=== PATIENT | female | born 1990 | race African-American/Black ===

== ENCOUNTER → 2020-12-09 15:07 | Outpatient (BNVA) | payer SELFPAY | DX: Z02.1 Encounter for pre-employment examination (principal) ==

== ENCOUNTER 2021-08-21 03:18 | Emergency (ER) | payer OTHER, SELFPAY ==
--- NOTE | ~2021-08-21 | US_ITS ---
EXAMINATION: US PELVIS CLINICAL INFORMATION: Left lower quadrant pelvic pain COMPARISON: 09/21/2015 TECHNIQUE: Ultrasound of the pelvis is performed using both transabdominal and transvaginal transducers along with Doppler. Transvaginal imaging is performed due to inadequate visualization transabdominally. FINDINGS: Uterus: The uterus is anteverted and measures 9.4 x 4.2 x 5.3 cm. The double wall endometrial thickness is 0.5 mm. The uterus is smooth in contour and has normal myometrial echogenicity. No visible fibroid. Adnexa: Both ovaries are visualized. There is normal color flow to the adnexa. There is no ovarian torsion. There is no pelvic ascites or fluid collection. Right ovary measures 3.7 x 1.4 x 1.6 cm. Left ovary measures 3.1 x 2.2 x 2.1 cm. There is a 1.8 cm follicle within the left ovary. US/US pelvic ovarian doppler IMPRESSION: Normal pelvic ultrasound.
--- NOTE | ~2021-08-21 | US_ITS ---
EXAMINATION: US PELVIS CLINICAL INFORMATION: Left lower quadrant pelvic pain COMPARISON: 09/21/2015 TECHNIQUE: Ultrasound of the pelvis is performed using both transabdominal and transvaginal transducers along with Doppler. Transvaginal imaging is performed due to inadequate visualization transabdominally. FINDINGS: Uterus: The uterus is anteverted and measures 9.4 x 4.2 x 5.3 cm. The double wall endometrial thickness is 0.5 mm. The uterus is smooth in contour and has normal myometrial echogenicity. No visible fibroid. Adnexa: Both ovaries are visualized. There is normal color flow to the adnexa. There is no ovarian torsion. There is no pelvic ascites or fluid collection. Right ovary measures 3.7 x 1.4 x 1.6 cm. Left ovary measures 3.1 x 2.2 x 2.1 cm. There is a 1.8 cm follicle within the left ovary. US/US pelvic and transvaginal IMPRESSION: Normal pelvic ultrasound.
[2021-08-21 03:22] VITALS: BP 138/96; PULSE 74; RESP 16; TEMP 36.4; O2SAT 100; BMI 20.5
[2021-08-21 04:03] LABS: MANUAL DIFF FLAG NO
[2021-08-21 04:04] LABS: Basophils Percent Auto 0.7 % (0-2); Eosinophils Absolute Auto 0.2 X10*3/uL (0.0-0.4); Eosinophils Percent Auto 4.8 % (0-4); Hematocrit 37.1 % (37.0-47.0); Hemoglobin 11.4 g/dl (12.0-16.0); Imm Gran Abs Auto 0.01 X10*3/uL (0.00-0.03); Imm Gran Pct Auto 0.2 % (0.0-0.4); Lymphocytes Absolute Auto 1.2 X10*3/uL (1.2-4.9); Lymphocytes Percent Auto 26.7 % (20-40); Mean Corpuscular HGB Conc 30.7 g/dl (31.0-35.0); Mean Corpuscular Hemoglobin 25.7 pg (27.0-33.0); Mean Corpuscular Volume 83.7 fL (80.0-98.0); Mean Platelet Volume 11.3 fL (9.4-12.3); Monocytes Absolute Auto 0.4 X10*3/uL (0.1-1.2); Monocytes Percent Auto 9.4 % (2-11); Neutrophils Absolute Auto 2.5 x10*3/uL (2.0-8.3); Neutrophils Percent Auto 58.2 % (45-73); Platelet Count 205 X10*3/uL (160-400); Red Blood Count 4.43 X10*6/uL (4.20-5.50); Red Cell Distribution Width 13.2 % (11.0-16.0); White Blood Count 4.3 X10*3/uL (4.8-10.8)
[2021-08-21 04:20] LABS: Appearance Urine CLEAR; Color Urine YELLOW; Glucose Urine UA NEG (NEG); Leukocyte Esterase Urine NEG (NEG); Nitrite Urine NEG (NEG); Specific Gravity - Urine >= 1.030 (1.005-1.025); UACC Culture Trigger NO; Urine Blood TRACE (NEG); Urine Ketones NEG (NEG); Urine Protein NEG (NEG-TRACE)
[2021-08-21 04:22] LABS: UPreg QC Valid YES; Urine Pregnancy NEGATIVE (NEGATIVE)
[2021-08-21 04:23] LABS: Alanine Aminotransferase 12 U/L (0-31); Albumin Level 4.1 g/dL (3.5-5.0); Alkaline Phosphatase 49 U/L (39-117); Anion Gap 11 (12-20); Aspartate Amino Transferase 17 U/L (5-31); Bilirubin Total < 0.2 mg/dL (0.0-1.0); Blood Urea Nitrogen 13 mg/dL (9-16); Carbon Dioxide 24 mmol/L (22-29); Chloride 105 mmol/L (96-108); Estimated Glomerular Filt Rate > 60; Glucose Random 89 mg/dL (60-115); Potassium 3.7 mmol/L (3.3-5.1); Sodium 136 mmol/L (135-145); Total Protein 6.6 g/dL (6.5-8.0)
[2021-08-21 04:33] LABS: Bacteria Urine TRACE /LPF; Mucus Urine 3+ /LPF; Squamous Epithelial Cell Urine 2+ /LPF; WBC Urine 0-2 /HPF (0-4)
--- NOTE | 2021-08-21 04:39 | ED_ITS ---
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 She reports a history of ovarian cyst endorses that she did have an ultrasound 2 weeks ago that was ?negative?. However, patient states that her pain was so severe this morning that instead of going home after work she drove straight here. Related Data Allergies Allergy/AdvReac Type Severity Reaction Status Date / Time ondansetron Allergy Unknown SWELLING Verified 08/21/21 03:26 [From ZOFRAN ( HYDROCHLORIDE)] Review of Systems Review of Systems Pertinent positives and negatives as stated in HPI 10 point review of systems is otherwise negative. PMFSH Past Medical History Source: nursing notes reviewed Medical History Mayi's disease Ovarian cyst Social History Social History Advance Directives: No Advance Directives Information Provided: Yes Patient : No Physical Exam ED Vital Signs: Vital Signs - 24 hr 08/21/21 03:22 08/21/21 05:51 Temperature 97.6 F 97.9 F Pulse Rate 74 66 Respiratory Rate 16 18 Blood Pressure 138/96 H 100/60 Pulse Oximetry 100 98 BMI result Body Mass Index 20.5 VITAL SIGNS: Reviewed. GENERAL: Well developed, well nourished, in no acute distress. HEAD: Normocephalic/atraumatic EYES: PERRLA, EOMI EARS: Ext canals without abnormality OROPHARYNX: no oral lesions noted, posterior pharynx clear LUNGS: Normal breath sounds. SpO2<100> CARDIOVASCULAR: Regular rate and rhythm without noted murmurs ABDOMEN: Soft, pain on palpation to left lower abdomen without rebound, non- distended with bowel sounds. MUSCULOSKELETAL: No tenderness, deformities, or effusions noted on gross inspection. EXTREMITIES: No cyanosis, clubbing or edema. SKIN: Inspection of the skin reveals no rashes NEUROLOGIC: Alert and oriented x 4. Strength and sensation to light touch were grossly intact x 4. Course Course Course Narrative: 31-year-old female with history and clinical presentation suggestive of possible ectopic, torsion, ruptured cyst. Patient provided with combination analgesics. Review of all investigations negative for acute findings other than a small left ovarian cyst. No ectopic and no torsion. MDM - Abdominal Pain Lab Data Result diagrams: 08/21/21 03:54 08/21/21 03:54 Labs: Lab Results 08/21/21 08/21/21 08/21/21 Range/Units 03:54 03:54 04:13 WBC 4.3 L (4.8-10.8) X10*3/uL RBC 4.43 (4.20-5.50) X10*6/uL Hgb 11.4 L (12.0-16.0) g/dl Hct 37.1 (37.0-47.0) % MCV 83.7 (80.0-98.0) fL MCH 25.7 L (27.0-33.0) pg MCHC 30.7 L (31.0-35.0) g/dl RDW 13.2 (11.0-16.0) % Plt Count 205 (160-400) X10*3/uL MPV 11.3 (9.4-12.3) fL Immature Gran % (Auto) 0.2 (0.0-0.4) % Neut % (Auto) 58.2 (45-73) % Lymph % (Auto) 26.7 (20-40) % Lucas % (Auto) 9.4 (2-11) % Eos % (Auto) 4.8 H (0-4) % Baso % (Auto) 0.7 (0-2) % Lymph # (Auto) 1.2 (1.2-4.9) X10*3/uL Lucas # (Auto) 0.4 (0.1-1.2) X10*3/uL Eos # (Auto) 0.2 (0.0-0.4) X10*3/uL Baso # (Auto) 0.0 (0.0-0.2) X10*3/uL Abs Immat Gran (auto) 0.01 (0.00-0.03) X10*3/uL Absolute Neuts (auto) 2.5 (2.0-8.3) x10*3/uL Absolute Nucleated RBC 0.000 (0.0-0.012) X10*3/uL Nucleated RBC % (auto) 0.0 (0.0-0.2) /100WBC Sodium 136 (135-145) mmol/L Potassium 3.7 (3.3-5.1) mmol/L Chloride 105 (96-108) mmol/L Carbon Dioxide 24 (22-29) mmol/L Anion Gap 11 L (12-20) BUN 13 (9-16) mg/dL Creatinine 0.68 (0.5-1.4) mg/dL Estim Creat Clear Calc 108.0 Estimated GFR > 60 Random Glucose 89 (60-115) mg/dL Calcium 9.0 (8.4-10.2) mg/dL Total Bilirubin < 0.2 (0.0-1.0) mg/dL AST 17 (5-31) U/L ALT 12 (0-31) U/L Alkaline Phosphatase 49 (39-117) U/L Total Protein 6.6 (6.5-8.0) g/dL Albumin 4.1 (3.5-5.0) g/dL Urine Color Urine Appearance Urine pH (5.0-8.0) Ur Specific [place] (1.005-1.025) Urine Protein (NEG-TRACE) MG/DL Urine Glucose (UA) (NEG) MG/DL Urine Ketones (NEG) MG/DL Urine Blood (NEG) Urine Nitrite (NEG) Ur Leukocyte Esterase (NEG) Urine RBC (0) /HPF Urine WBC (0-4) /HPF Ur Squamous Epith Cells /LPF Urine Bacteria /LPF Urine Mucus /LPF Urine Test NEGATIVE (NEGATIVE) 08/21/21 Range/Units 04:13 WBC (4.8-10.8) X10*3/uL RBC (4.20-5.50) X10*6/uL Hgb (12.0-16.0) g/dl Hct (37.0-47.0) % MCV (80.0-98.0) fL MCH (27.0-33.0) pg MCHC (31.0-35.0) g/dl RDW (11.0-16.0) % Plt Count (160-400) X10*3/uL MPV (9.4-12.3) fL Immature Gran % (Auto) (0.0-0.4) % Neut % (Auto) (45-73) % Lymph % (Auto) (20-40) % Lucas % (Auto) (2-11) % Eos % (Auto) (0-4) % Baso % (Auto) (0-2) % Lymph # (Auto) (1.2-4.9) X10*3/uL Lucas # (Auto) (0.1-1.2) X10*3/uL Eos # (Auto) (0.0-0.4) X10*3/uL Baso # (Auto) (0.0-0.2) X10*3/uL Abs Immat Gran (auto) (0.00-0.03) X10*3/uL Absolute Neuts (auto) (2.0-8.3) x10*3/uL Absolute Nucleated RBC (0.0-0.012) X10*3/uL Nucleated RBC % (auto) (0.0-0.2) /100WBC Sodium (135-145) mmol/L Potassium (3.3-5.1) mmol/L Chloride (96-108) mmol/L Carbon Dioxide (22-29) mmol/L Anion Gap (12-20) BUN (9-16) mg/dL Creatinine (0.5-1.4) mg/dL Estim Creat Clear Calc Estimated GFR Random Glucose (60-115) mg/dL Calcium (8.4-10.2) mg/dL Total Bilirubin (0.0-1.0) mg/dL AST (5-31) U/L ALT (0-31) U/L Alkaline Phosphatase (39-117) U/L Total Protein (6.5-8.0) g/dL Albumin (3.5-5.0) g/dL Urine Color YELLOW Urine Appearance CLEAR Urine pH 6.0 (5.0-8.0) Ur Specific [place] >= 1.030 H (1.005-1.025) Urine Protein NEG (NEG-TRACE) MG/DL Urine Glucose (UA) NEG (NEG) MG/DL Urine Ketones NEG (NEG) MG/DL Urine Blood TRACE (NEG) Urine Nitrite NEG (NEG) Ur Leukocyte Esterase NEG (NEG) Urine RBC 1-4 (0) /HPF Urine WBC 0-2 (0-4) /HPF Ur Squamous Epith Cells 2+ /LPF Urine Bacteria TRACE /LPF Urine Mucus 3+ /LPF Urine Test (NEGATIVE) Discharge Plan Discharge Clinical Impression: Pelvic pain, Urinary frequency Patient Disposition: Home, Self-Care Instructions: Polyuria (ED), Pelvic Pain (ED) Additional Instructions: 1. Recommend [id number] Tylenol/ibuprofen as needed for pain control. 2. Follow-up with your primary care provider on Tuesday to re-evaluate. Return to the ER for worsening symptoms. Referrals: Rosanne Anthony CPNP [Primary Care Provider] -
[2021-08-21] MEDS: Ketorolac Tromethamine 15 MG/ML VIAL IM (04:48)
[2021-08-21] MEDS: Acetaminophen 325 MG TABLET 975 MG PO (04:48)
[2021-08-21 05:51] VITALS: BP 100/60; PULSE 66; RESP 18; TEMP 36.6; O2SAT 98
== END 2021-08-21 06:20 | disposition home or self-care (01) ==
PROVIDERS: Emergency Provider Student in an Organized Health Care Education/Training Program; PCP Nurse Practitioner Pediatrics
DX: R35.0 Frequency of micturition (principal); R10.32 Left lower quadrant pain; R10.2 Pelvic and perineal pain; Z79.899 Other long term (current) drug therapy
CPT/HCPCS: 36415; 76830; 76856; 80053; 81001; 81025; 85025; 93975; 96372; 99284; J1885

== ENCOUNTER 2022-03-16 01:13 | Outpatient (REF) | payer OTHER, SELFPAY ==
[2022-03-16 01:48] LABS: MANUAL DIFF FLAG NO
[2022-03-16 01:55] LABS: Basophils Percent Auto 0.4 % (0-2); Eosinophils Absolute Auto 0.2 X10*3/uL (0.0-0.4); Eosinophils Percent Auto 3.5 % (0-4); Hematocrit 40.5 % (37.0-47.0); Hemoglobin 12.3 g/dl (12.0-16.0); Imm Gran Abs Auto 0.01 X10*3/uL (0.00-0.03); Imm Gran Pct Auto 0.2 % (0.0-0.4); Lymphocytes Percent Auto 37.8 % (20-40); Mean Corpuscular HGB Conc 30.4 g/dl (31.0-35.0); Mean Corpuscular Hemoglobin 26.1 pg (27.0-33.0); Mean Platelet Volume 11.1 fL (9.4-12.3); Monocytes Absolute Auto 0.4 X10*3/uL (0.1-1.2); Monocytes Percent Auto 8.3 % (2-11); Neutrophils Absolute Auto 2.6 x10*3/uL (2.0-8.3); Neutrophils Percent Auto 49.8 % (45-73); Platelet Count 236 X10*3/uL (160-400); Red Blood Count 4.71 X10*6/uL (4.20-5.50); Red Cell Distribution Width 13.2 % (11.0-16.0); White Blood Count 5.2 X10*3/uL (4.8-10.8)
[2022-03-16 01:59] LABS: Appearance Urine Clear; Color Urine Yellow; Glucose Urine UA Negative (Negative); Leukocyte Esterase Urine Negative (Negative); Nitrite Urine Negative (Negative); Specific Gravity - Urine 1.015 (1.005-1.025); Urine Blood Negative (Negative); Urine Ketones Negative (Negative); Urine Protein Negative (Neg-Trace)
[2022-03-16 02:00] LABS: UPreg QC Valid YES; Urine Pregnancy NEGATIVE (NEGATIVE)
[2022-03-16 02:17] LABS: Alanine Aminotransferase 16 U/L (0-31); Albumin Level 4.4 g/dL (3.5-5.0); Alkaline Phosphatase 53 U/L (39-117); Anion Gap 15 (12-20); Aspartate Amino Transferase 18 U/L (5-31); Bilirubin Total < 0.2 mg/dL (0.0-1.0); Blood Urea Nitrogen 10 mg/dL (9-16); Carbon Dioxide 25 mmol/L (22-29); Chloride 105 mmol/L (96-108); Estimated Glomerular Filt Rate > 60; Glucose Random 73 mg/dL (60-115); Lipase 56 U/L (8-78); Sodium 141 mmol/L (135-145); Total Protein 7.1 g/dL (6.5-8.0)
== END 2022-03-16 01:14 | disposition home or self-care (01) ==
LOC: HO.LAB 01:13
PROVIDERS: Physician Assistant Medical; Visit Provider Internal Medicine
DX: R10.32 Left lower quadrant pain (principal)
CPT/HCPCS: 36415; 80053; 81003; 81025; 83690; 85025

== ENCOUNTER 2022-03-23 11:30 | Outpatient (REF) | payer OTHER, SELFPAY ==
[2022-03-23 18:29] LABS: CT PCR NOT DETECTED (Not Detect.); NG PCR NOT DETECTED (Not Detect.)
[2022-03-24 07:13] LABS: Syphilis Screen Nonreactive (Nonreactive)
[2022-03-24 07:39] LABS: HBsAGNum1 0.27 S/CO (0.00-0.99); HIV AB/AG Nonreactive (Nonreactive); HIV Num 1 0.06 S/CO (0.00-0.99); Hepatitis B Surface Antigen Negative (Negative); ~HepC Num1 0.05 S/CO (0.00-0.79); ~Hepatitis C Antibody Nonreactive (Nonreactive)
[2022-03-24 13:57] LABS: BV Int Neg Control Negative (Negative); BV Int Pos Control Positive (Positive)
[2022-03-26 23:47] LABS: HPV mRNA E6/E7 rflx Not Detected (Not Detected)
== END 2022-03-23 11:31 | disposition home or self-care (01) ==
LOC: HO.LNP 11:30
PROVIDERS: Visit Provider Advanced Practice Midwife
DX: Z01.419 Encounter for gynecological examination (general) (routine) without abnormal findings (principal); R33.9 Retention of urine, unspecified; Z11.3 Encounter for screening for infections with a predominantly sexual mode of transmission
CPT/HCPCS: 86780; 86803; 87340; 87389; 87480; 87491; 87510; 87591; 87624; 87660; 88142

== ENCOUNTER 2022-03-30 01:26 | Emergency (ER) | payer OTHER, SELFPAY ==
--- NOTE | ~2022-03-30 | US_ITS ---
EXAMINATION: ULTRASOUND OF THE PELVIS CLINICAL INFORMATION: Left lower quadrant pain. History of cysts.. COMPARISON: CT from today. Ultrasound 08/21/2021.. TECHNIQUE: Transabdominal and transvaginal pelvic ultrasound. Doppler evaluation with spectral analysis was performed. A transvaginal study was performed in addition to the transabdominal study which did not yield an adequate examination of the uterus and ovaries due to superimposed distended gas-filled loops of bowel. FINDINGS: The uterus is normal in size and appearance, measuring 6 8.6 x 4.5 x 5.5 cm longitudinally, anteroposteriorly and transversely. The endometrial stripe thickness is normal, measuring 0.8 cm in thickness. No focal myometrial mass is seen. The ovaries bilaterally are visualized and appear normal, with the right ovary measuring 3.5 x 1.5 x 2.2 cm and the left ovary measuring 3.9 x 2.6 x 2.9 cm. There are normal arterial and venous spectral waveforms bilaterally. Multiple follicles bilaterally. No adnexal mass. Trace pelvic free fluid. US/US pelvic and transvaginal IMPRESSION: Normal pelvic ultrasound. No evidence of active ovarian torsion at this time. No dominant cyst. Multiple follicles bilaterally.
--- NOTE | ~2022-03-30 | US_ITS ---
EXAMINATION: ULTRASOUND OF THE PELVIS CLINICAL INFORMATION: Left lower quadrant pain. History of cysts.. COMPARISON: CT from today. Ultrasound 08/21/2021.. TECHNIQUE: Transabdominal and transvaginal pelvic ultrasound. Doppler evaluation with spectral analysis was performed. A transvaginal study was performed in addition to the transabdominal study which did not yield an adequate examination of the uterus and ovaries due to superimposed distended gas-filled loops of bowel. FINDINGS: The uterus is normal in size and appearance, measuring 6 8.6 x 4.5 x 5.5 cm longitudinally, anteroposteriorly and transversely. The endometrial stripe thickness is normal, measuring 0.8 cm in thickness. No focal myometrial mass is seen. The ovaries bilaterally are visualized and appear normal, with the right ovary measuring 3.5 x 1.5 x 2.2 cm and the left ovary measuring 3.9 x 2.6 x 2.9 cm. There are normal arterial and venous spectral waveforms bilaterally. Multiple follicles bilaterally. No adnexal mass. Trace pelvic free fluid. US/US pelvic ovarian doppler IMPRESSION: Normal pelvic ultrasound. No evidence of active ovarian torsion at this time. No dominant cyst. Multiple follicles bilaterally.
--- NOTE | ~2022-03-30 | CT_ITS ---
EXAMINATION: CT ABDOMEN AND PELVIS WITHOUT CONTRAST CLINICAL INFORMATION: Right flank and left lower quadrant pain. COMPARISON: Ultrasound 08/21/2021. TECHNIQUE: Multidetector volumetric imaging was performed from the superior aspect of the liver through the pubic symphysis. Sagittal and coronal reformatted images were obtained on the technologist's workstation. This CT examination was performed using dose optimization techniques as appropriate, variously including the following: *Automated exposure control *Adjustment of mA and/or kV according to patient size (this includes techniques or standardized protocols for targeted exams where dose is matched to indication/reason for exam; i.e. extremities or head) *Use of iterative reconstruction technique DLP: 411 mGy-cm FINDINGS: LUNG BASES: The visualized lung bases are unremarkable. LIVER, GALLBLADDER, AND BILIARY TREE: The liver is normal in size, shape, and attenuation. No focal hepatic lesion or biliary ductal dilatation is present. The gallbladder is not well seen, likely contracted. PANCREAS: Unremarkable. SPLEEN: Unremarkable. ADRENAL GLANDS: Unremarkable. KIDNEYS AND URETERS: The kidneys are normal in size, shape, and attenuation. No hydronephrosis, hydroureter, or calculi seen. No perinephric stranding. BLADDER: Unremarkable. GASTROINTESTINAL TRACT: The small and large bowel are unremarkable. The appendix is unremarkable. ABDOMINAL WALL: No significant hernia is appreciated. LYMPH NODES: Normal. VASCULAR: Unremarkable. PELVIC VISCERA: The uterus and adnexa are unremarkable. OSSEOUS STRUCTURES: No acute or suspicious osseous abnormality. CT/CT abdomen pelvis wo IV con IMPRESSION: No acute findings in the abdomen or pelvis. No hydronephrosis or nephrolithiasis. Normal appendix. Fleischner guidelines were followed.
[2022-03-30 01:31] VITALS: BP 141/76; PULSE 71; RESP 16; TEMP 36.5; O2SAT 100; BMI 21.7
--- NOTE | 2022-03-30 01:39 | ED_ITS ---
HPI - Abdominal Pain General Chief Complaint: Abdominal Pain Stated Complaint: FLANK AND ABD PAIN Time Seen by Provider: 03/30/22 01:38 Source: patient Mode of arrival: ambulatory Limitations: no limitations History of Present Illness HPI narrative: Patient comes to the emergency room complaining of intermittent right-sided flank pain for last couple of days, no hematuria no dysuria, complaining of bladder fullness. Also, complaining of intermittent left lower quadrant pressure that has been present for several weeks to months. Patient states that she has history of ovarian cysts , patient has also history of kidney stones. Patient denies nausea vomiting or diarrhea, no fever or chills, no URI symptoms. Patient was seen in August of this year for left lower quadrant pain, patient was diagnosed with a 1.8 cm follicle within the left ovary. Related Data Home Medications Medication Instructions Recorded Confirmed diindolylmethane 75 mg-turmeric cap PO 03/23/22 03/23/22 125 mg-black pepper 1.25 mg capsule levothyroxine 50 mcg tablet 50 mcg PO DAILY 03/23/22 03/23/22 norethindrone (contraceptive) 0.35 0.35 mg PO DAILY 03/23/22 03/23/22 mg tablet Allergies Allergy/AdvReac Type Severity Reaction Status Date / Time ondansetron Allergy Unknown SWELLING Verified 03/23/22 10:39 [From ZOFRAN ( HYDROCHLORIDE)] Review of Systems Review of Systems Constitutional : No Weight loss, No Fever, No Chills, No Night Sweats, No Fatigue, No Malaise ENT/Mouth : No Hearing loss, No Ear Pain, No Nasal Congestion, No Sinus Pain, No Hoarseness, No sore throat, No Rhinorrhea, No Swallowing Difficulty Eyes: No Eye Pain, No Swelling, No Redness, No Foreign Body, No Discharge, No Vision Changes Cardiovascular : No Chest Pain, No SOB, No Dyspnea on Exertion, No Orthopnea, No Edema, No Palpitations Respiratory : No Cough, No Sputum, No Wheezing, No Smoke Exposure, No Dyspnea Gastrointestinal : No Nausea, No Vomiting, No Diarrhea, No Constipation, complaining of left lower quadrant pain intermittent for several months Genitourinary : no irregular bleeding, complaining of fullness sensation in the bladder, No Dysuria, No Urinary Frequency, No Hematuria, No Urinary Incontinence, No Urgency, complaining of right-sided flank pain, No Urinary Flow Changes, No Hesitancy Musculoskeletal : No joint pain, No Myalgias, No Joint Swelling Skin : No Skin Lesions, No rash Neuro : No Weakness, No Numbness, No Paresthesias, No Loss of Consciousness, No Dizziness, No Headache Psych : No Anxiety/Panic, No Depression, No SI/HI/AH/VH, No Social Issues, Heme/Lymph: No Bruising, No Bleeding,No Lymphadenopathy Endocrine : No Polyuria, No Polydipsia, No Temperature Intolerance [facility] Past Medical History Medical History Mayi's disease Ovarian cyst Social History Social History Advance Directives: No Physical Exam ED Vital Signs: Vital Signs - 24 hr 03/30/22 01:31 Temperature 97.7 F Pulse Rate 71 Respiratory Rate 16 Blood Pressure 141/76 H Pulse Oximetry 100 Oxygen Delivery Method Room Air BMI result Body Mass Index 21.7 Const Other: Appearance: Alert. Oriented X3. No acute distress. Eyes: Pupils equal, round and reactive to light. ENT: Pharynx normal. Neck: Normal inspection. Neck supple. No lymph nodes noted. No crepitus CVS: Normal heart rate and rhythm. Pulses normal. Normal S1 and S2 Respiratory: No respiratory distress. Breath sounds normal. No Wheezing. No rales Abdomen: Soft and nontender. No rigidity. No distention. Mild right-sided left lower quadrant discomfort, positive CVA tenderness on the right Skin: Skin warm and dry. Normal skin color. Normal skin turgor. Extremities: No lower extremity edema. No Lacerations. No Rash Neuro: Oriented X 3. No motor deficit. No sensory deficit. Moving all extremities. No slurred speech. CN 2 through 12 grossly intact Psych: calm, cooperative, normal affect Course Course Course Narrative: All Of patient's labs and imaging pending. CT scan is negative, ultrasound is pending, patient received 1 dose of IV Toradol Transvaginal Doppler/ultrasound, shows small follicles, no ovarian torsion. Patient states that she can take Tylenol at home, no prescription requested. Medications Administered Discontinued Medications Generic Name Dose Route Start Last Admin Trade Name Freq PRN Reason Stop Dose Admin Ketorolac Tromethamine 30 mg 03/30/22 01:52 03/30/22 01:55 Ketorolac Tromethamine 30 Mg/Ml Vial IVPUSH 03/30/22 01:53 30 mg ONCE ONE Administration MDM - Abdominal Pain Lab Data Result diagrams: 03/30/22 01:40 03/30/22 01:40 Labs: Lab Results 03/30/22 03/30/22 03/30/22 Range/Units 01:40 01:40 01:49 WBC 6.0 (4.8-10.8) X10*3/uL RBC 4.74 (4.20-5.50) X10*6/uL Hgb 12.5 (12.0-16.0) g/dl Hct 40.0 (37.0-47.0) % MCV 84.4 (80.0-98.0) fL MCH 26.4 L (27.0-33.0) pg MCHC 31.3 (31.0-35.0) g/dl RDW 13.2 (11.0-16.0) % Plt Count 284 (160-400) X10*3/uL MPV 10.6 (9.4-12.3) fL Immature Gran % (Auto) 0.2 (0.0-0.4) % Neut % (Auto) 58.0 (45-73) % Lymph % (Auto) 31.4 (20-40) % [place] % (Auto) 6.7 (2-11) % Eos % (Auto) 3.0 (0-4) % Baso % (Auto) 0.7 (0-2) % Lymph # (Auto) 1.9 (1.2-4.9) X10*3/uL [place] # (Auto) 0.4 (0.1-1.2) X10*3/uL Eos # (Auto) 0.2 (0.0-0.4) X10*3/uL Baso # (Auto) 0.0 (0.0-0.2) X10*3/uL Abs Immat Gran (auto) 0.01 (0.00-0.03) X10*3/uL Absolute Neuts (auto) 3.5 (2.0-8.3) x10*3/uL Absolute Nucleated RBC 0.000 (0.0-0.012) X10*3/uL Nucleated RBC % (auto) 0.0 (0.0-0.2) /100WBC Sodium 140 (135-145) mmol/L Potassium 4.4 (3.3-5.1) mmol/L Chloride 106 (96-108) mmol/L Carbon Dioxide 26 (22-29) mmol/L Anion Gap 12 (12-20) BUN 15 (9-16) mg/dL Creatinine 0.69 (0.5-1.4) mg/dL Estim Creat Clear Calc 109.6 Estimated GFR > 60 Random Glucose 83 (60-115) mg/dL Calcium 9.2 (8.4-10.2) mg/dL Total Bilirubin 0.2 (0.0-1.0) mg/dL Direct Bilirubin < 0.2 (0.0-0.5) mg/dL AST 20 (5-31) U/L ALT 24 (0-31) U/L Alkaline Phosphatase 50 (39-117) U/L Total Protein 7.1 (6.5-8.0) g/dL Albumin 4.4 (3.5-5.0) g/dL Beta HCG, Quant < 2 mIU/mL Urine Color Yellow Urine Appearance Clear Urine pH 7.5 (5.0-9.0) Ur Specific [place] 1.025 (1.005-1.025) Urine Protein Negative (Neg-Trace) mg/dL Urine Glucose (UA) Negative (Negative) mg/dL Urine Ketones Negative (Negative) mg/dL Urine Blood Negative (Negative) Urine Nitrite Negative (Negative) Ur Leukocyte Esterase Negative (Negative) Imaging Data US - abdomen: Radiologist's impression: COMPARISON: CT from today. Ultrasound 08/21/2021.. TECHNIQUE: Transabdominal and transvaginal pelvic ultrasound. Doppler evaluation with spectral analysis was performed. A transvaginal study was performed in addition to the transabdominal study which did not yield an adequate examination of the uterus and ovaries due to superimposed distended gas-filled loops of bowel. FINDINGS: The uterus is normal in size and appearance, measuring 6 8.6 x 4.5 x 5.5 cm longitudinally, anteroposteriorly and transversely. The endometrial stripe thickness is normal, measuring 0.8 cm in thickness. No focal myometrial mass is seen. The ovaries bilaterally are visualized and appear normal, with the right ovary measuring 3.5 x 1.5 x 2.2 cm and the left ovary measuring 3.9 x 2.6 x 2.9 cm. There are normal arterial and venous spectral waveforms bilaterally. Multiple follicles bilaterally. No adnexal mass. Trace pelvic free fluid. US/US pelvic and transvaginal IMPRESSION: Normal pelvic ultrasound. No evidence of active ovarian torsion at this time. No dominant cyst. Multiple follicles bilaterally. CT scan - abdomen: Radiologist's impression: FINDINGS: LUNG BASES: The visualized lung bases are unremarkable.? LIVER, GALLBLADDER, AND BILIARY TREE: The liver is normal in size, shape, and attenuation. No focal hepatic lesion or biliary ductal dilatation is present. The gallbladder is not well seen, likely contracted.? PANCREAS: Unremarkable.? SPLEEN: Unremarkable.? ADRENAL GLANDS: Unremarkable.? KIDNEYS AND URETERS: The kidneys are normal in size, shape, and attenuation. No hydronephrosis, hydroureter, or calculi seen. No perinephric stranding. ? BLADDER: Unremarkable.? GASTROINTESTINAL TRACT: The small and large bowel are unremarkable. The appendix is unremarkable.? ABDOMINAL WALL: No significant hernia is appreciated.? LYMPH NODES: Normal. VASCULAR: Unremarkable. PELVIC VISCERA: The uterus and adnexa are unremarkable.? OSSEOUS STRUCTURES: No acute or suspicious osseous abnormality.? CT/CT abdomen pelvis wo IV con IMPRESSION: No acute findings in the abdomen or pelvis. No hydronephrosis or nephrolithiasis. Normal appendix. ? Fleischner guidelines were followed. Discharge Plan Discharge Clinical Impression: Abdominal pain Patient Disposition: Home, Self-Care Instructions: Abdominal Pain (ED) Additional Instructions: Please follow-up with your primary care physician tomorrow. If you have any wo rsening or new symptoms, please return to the emergency room or call 911 Prescriptions: No Action levothyroxine 50 mcg tablet 50 mcg PO DAILY norethindrone (contraceptive) 0.35 mg tablet 0.35 mg PO DAILY [id number]-[id number]-[id number] 75-125-1.25 mg capsule PO
[2022-03-30 01:50] LABS: MANUAL DIFF FLAG NO
[2022-03-30] MEDS: Ketorolac Tromethamine 30 MG/ML VIAL IVPUSH (01:55)
[2022-03-30 01:57] LABS: Basophils Percent Auto 0.7 % (0-2); Eosinophils Absolute Auto 0.2 X10*3/uL (0.0-0.4); Hemoglobin 12.5 g/dl (12.0-16.0); Imm Gran Abs Auto 0.01 X10*3/uL (0.00-0.03); Imm Gran Pct Auto 0.2 % (0.0-0.4); Lymphocytes Absolute Auto 1.9 X10*3/uL (1.2-4.9); Lymphocytes Percent Auto 31.4 % (20-40); Mean Corpuscular HGB Conc 31.3 g/dl (31.0-35.0); Mean Corpuscular Hemoglobin 26.4 pg (27.0-33.0); Mean Corpuscular Volume 84.4 fL (80.0-98.0); Mean Platelet Volume 10.6 fL (9.4-12.3); Monocytes Absolute Auto 0.4 X10*3/uL (0.1-1.2); Monocytes Percent Auto 6.7 % (2-11); Neutrophils Absolute Auto 3.5 x10*3/uL (2.0-8.3); Platelet Count 284 X10*3/uL (160-400); Red Blood Count 4.74 X10*6/uL (4.20-5.50); Red Cell Distribution Width 13.2 % (11.0-16.0)
[2022-03-30 01:59] LABS: Appearance Urine Clear; Color Urine Yellow; Glucose Urine UA Negative (Negative); Leukocyte Esterase Urine Negative (Negative); Nitrite Urine Negative (Negative); PH 7.5 (5.0-9.0); Specific Gravity - Urine 1.025 (1.005-1.025); Urine Blood Negative (Negative); Urine Ketones Negative (Negative); Urine Protein Negative (Neg-Trace)
[2022-03-30 02:15] LABS: Alanine Aminotransferase 24 U/L (0-31); Albumin Level 4.4 g/dL (3.5-5.0); Alkaline Phosphatase 50 U/L (39-117); Anion Gap 12 (12-20); Aspartate Amino Transferase 20 U/L (5-31); Bilirubin Direct < 0.2 mg/dL (0.0-0.5); Bilirubin Total 0.2 mg/dL (0.0-1.0); Blood Urea Nitrogen 15 mg/dL (9-16); Calcium 9.2 mg/dL (8.4-10.2); Carbon Dioxide 26 mmol/L (22-29); Chloride 106 mmol/L (96-108); Creatinine Clr Calc Pharmacy 109.6; Estimated Glomerular Filt Rate > 60; Glucose Random 83 mg/dL (60-115); HCG Quantitative < 2 mIU/mL; Potassium 4.4 mmol/L (3.3-5.1); Sodium 140 mmol/L (135-145); Total Protein 7.1 g/dL (6.5-8.0)
--- OUTSIDE RECORDS SUMMARY | 2022-03-30 02:19 | XMS_ITS | Continuity of Care Document ---
:1990 Author Organization [facility] Address [address] [place] [address]- Care Team Providers Name Role Phone Chato SMITH, Isabela Madden Primary Care Physician Encounter [facility] Date(s): 10/01/21 - 10/31/[address] [address]- Allergies, Adverse Reactions, Alerts Substance Reaction Severity Status ibuprofen Active Zofran Active Cats Active Latex Active Strattera Active MetroGel-Vaginal1 Persistent Mild Active 1Vaginal irritation and itching following application Immunizations Given and Recorded Vaccine Date Status Refusal Reason SARS-CoV-2 (COVID-19) mRNA-1273 vaccine 05/19/21 Recorded Influenza Virus Vaccine (oldterm) 02/11/21 Recorded SARS-CoV-2 (COVID-19) mRNA BNT-162b2 vac 07/18/20 Recorde d SARS-CoV-2 (COVID-19) mRNA BNT-162b2 vac 06/23/20 Recorde d tetanus/diphtheria/pertussis, acel(Tdap) 06/03/20 Recorde d tetanus/diphtheria/pertussis, acel(Tdap)1 06/11/10 Given 1Admin Note: Per Patient Medications Jess 0.35 mg oral tablet 1 tablet = 0.35 mg, By Mouth, Daily, 0 Refills, Maintenance, 10/02/19 21:01:00 EDT Start Date: 10/02/19 Status: Ordered Problem List Condition Effective Dates Status Health Status Informant Acne(Confirmed) Active TRACEY positive(Confirmed) Active Asthma(Confirmed) Active ADHD(Confirmed) Active Simple ovarian cyst(Confirmed) Active Mayi's thyroiditis(Confirmed) Active IBS (irritable bowel Active syndrome)(Confirmed) Encounter for IUD 07/30/16 Active insertion-paragard(Confirmed) Elevated LFTs(Confirmed) Active Migraines(Confirmed)1 Active Raynauds disease(Confirmed)2 Active Delayed sleep phase Active syndrome(Confirmed) Subclinical hypothyroidism(Confirmed) Active Vitamin D deficiency(Confirmed) Active 31566: Had a poor response to Topamax in the form of anhidrosis and hyperthermia, therefore D/Stevan.2Was told about 2 years ago, never underwent any extensive W/U. Social History Social History Type Response Smoking Status Never smoker entered on: 05/06/17 Sex Female
--- OUTSIDE RECORDS SUMMARY | 2022-03-30 02:19 | XMS_ITS ---
:1990 Author Organization [facility] Address [address] [place] [address] Care Team Providers Name Role Phone LULU CARRENO Unavailable Unavailable PROBLEMS Unknown Problems ALLERGIES Substance Reaction Event Type Date Status Seasonale Unknown Drug Allergy Mar, Active Latex Unknown Drug Allergy Mar, Active soy Unknown Non Drug Allergy Mar, Active ENCOUNTERS Encounter Location Date Diagnosis [facility] [address] [address] Mar, In [place], [place] toenail L60. 0 [phone] IMMUNIZATIONS No Known Immunizations SOCIAL HISTORY Never Assessed REASON FOR REFERRAL FUNCTIONAL STATUS PLAN OF CARE Activity Details Follow Up 2 Weeks Reason: Future/Pending Procedure Removal of nail matrix VITAL SIGNS Weight 141.4 lbs 2020-04-07 Heart Rate 76 /min 2020-04-07 Temperature 97 degrees Fahrenheit 2020-04-07 Respiratory Rate 14 /min 2020-04-07 Blood pressure systolic 108 mm Hg 2020-04-07 Blood pressure diastolic 78 mm Hg 2020-04-07 MEDICATIONS Medication Instructions Dosage Frequency Start Date End Date Duration S tatus Multivitamin Active Levothroid Active Strattera 10 MG as directed Acti ve PROCEDURES Procedure Date Ordered Result Body Site REMOVAL OF NAIL BED Apr 07, 2020 RESULTS No Results REASON FOR VISIT Ingrown toenail R. Great Toe Insurance Providers [facility] Patient Patient Patient Patient Patient Subscriber Subscriber Subscriber Group Insurance Plan Plan Plan Plan ID Relationship Address Phone Name Date of ID Name Date of No Type Insurance Insurance Insurance Coverage to Subscriber Address Phone Name Dates [facility]ly [facility], [facility]–1983 [phone] [facility] [address] [phone] [id number] [facility], [address] [place] [address]
--- OUTSIDE RECORDS SUMMARY | 2022-03-30 02:19 | XMS_ITS | Continuity of Care Document ---
:1990 Author Organization [facility] Address [address] [place] [address]- Care Team Providers Name Role Phone Little KLEIN, Matthew Alejo Primary Care Physician Encounter [facility] Date(s): 04/30/21 - 05/30/21 [facility] [address] [place] [address]- Allergies, Adverse Reactions, Alerts Substance Reaction Severity Status ibuprofen Active Zofran Active Cats Active Latex Active Strattera Active MetroGel-Vaginal1 Persistent Mild Active 1Vaginal irritation and itching following application Immunizations Given and Recorded Vaccine Date Status Refusal Reason Influenza Virus Vaccine (oldterm) 02/11/21 Recorded SARS-CoV-2 [...] Subclinical hypothyroidism(Confirmed) Active Vitamin D deficiency(Confirmed) Active 23352: Had a poor response to Topamax in the form of anhidrosis and hyperthermia, therefore D/Stevan.2Was told about 2 years ago, never underwent any extensive W/U. Social History Social History Type Response Smoking Status Never smoker entered on: 05/06/17 Sex
--- OUTSIDE RECORDS SUMMARY | 2022-03-30 02:19 | XMS_ITS | Continuity of Care Document ---
:1990 Author Organization [facility] Address [address] [place] [address]- Care Team Providers Name Role Phone Matthew Fitch MD Primary Care Physician Encounter [facility] Date(s): 02/10/21 - 04/16/21 [facility] [address] [place] [address]- Attending Physician: Matthew Fitch MD Allergies, Adverse Reactions, Alerts Substance Reaction Severity [...] Subclinical hypothyroidism(Confirmed) Active Vitamin D deficiency(Confirmed) Active 30381: Had a poor response to Topamax in the form of anhidrosis and hyperthermia, therefore D/Stevan.2Was told about 2 years ago, never underwent any extensive W/U. Social History Social History Type Response Smoking Status Never smoker entered on: 05/06/17 Sex
--- OUTSIDE RECORDS SUMMARY | 2022-03-30 02:19 | XMS_ITS | Continuity of Care Document ---
:1990 Author Organization [facility] Address [address] [place] [address]- Care Team Providers Name Role Phone Isabela Reis NP Primary Care Physician Encounter [facility] NBR [id number] Date(s): 10/26/21 - 01/03/[address] [address]- Attending Physician: Isabela Reis NP Allergies, Adverse Reactions, Alerts Substance Reaction Severity [...] Subclinical hypothyroidism(Confirmed) Active Vitamin D deficiency(Confirmed) Active 78049: Had a poor response to Topamax in the form of anhidrosis and hyperthermia, therefore D/Stevan.2Was told about 2 years ago, never underwent any extensive W/U. Social History Social History Type Response Smoking Status Never smoker entered on: 05/06/17 Sex Female Care Team PersonnelName: Isabela Reis NP Address: [address] [place] [address] Primary [place], [place] [address]
--- OUTSIDE RECORDS SUMMARY | 2022-03-30 02:19 | XMS_ITS | Continuity of Care Document ---
:1990 Author Organization [facility] Address [address] [place] [address]- Care Team Providers Name Role Phone Matthew Fitch MD Primary Care Physician Encounter [facility] Date(s): 04/30/21 - 05/30/21 [facility] [address] [place] [address]- Allergies, Adverse Reactions, Alerts Substance Reaction Severity [...] Subclinical hypothyroidism(Confirmed) Active Vitamin D deficiency(Confirmed) Active 01101: Had a poor response to Topamax in the form of anhidrosis and hyperthermia, therefore D/Stevan.2Was told about 2 years ago, never underwent any extensive W/U. Social History Social History Type Response Smoking Status Never smoker entered on: 05/06/17 Sex
--- OUTSIDE RECORDS SUMMARY | 2022-03-30 02:19 | XMS_ITS | Continuity of Care Document ---
:1990 Author Organization [facility] Address [address] [place] [address]- Care Team Providers Name Role Phone Victorino KLEIN, Nba Campos Primary Care Physician [place] [facility] [place] 09/18/20 [facility] [address] [address]- Attending Physician: Elvie Johnston Admitting Physician: Elvie Johnston Referring Physician: Elvie Johnston Allergies, Adverse Reactions, Alerts Substance Reaction Severity Status ibuprofen Active Zofran Active Latex Active MetroGel-Vaginal1 Persistent Mild Active 1Vaginal irritation and itching following application Immunizations Given and Recorded Vaccine Date Status Refusal Reason tetanus/diphtheria/pertussis, acel(Tdap)1 06/11/10 Given 1Admin Note: Per Patient Medications Jess 0.35 mg oral tablet 1 tablet = 0.35 mg, By Mouth, Daily, 0 Refills, Maintenance, 10/02/19 21:01:00 EDT Start Date: 10/02/19 Status: Orderedlevothyroxine 0.025 mg oral tablet 1 tablet = 25 mcg, By Mouth, Daily, 0 Refills, Maintenance, 10/02/19 21:01:00 EDT Start Date: 10/02/19 Status: Ordered Problem List Condition Effective Dates Status Health Status Informant Acne(Confirmed) Active Asthma(Confirmed) Active Depressive disorder(Confirmed) Active IBS (irritable bowel Active syndrome)(Confirmed) Encounter for IUD 07/30/16 Active insertion-paragard(Confirmed) Migraines(Confirmed)1 Active Encounter for care in first Active trimester of first (Confirmed) Raynauds disease(Confirmed)2 Active Reflux esophagitis(Confirmed) Active Delayed sleep phase Active syndrome(Confirmed) Vitamin D deficiency(Confirmed) Active 41399: Had a poor response to Topamax in the form of anhidrosis and hyperthermia, therefore D/Stevan.2Was told about 2 years ago, never underwent any extensive W/U. Social History Social History Type Response Smoking Status Never smoker entered on: 05/06/17 Sex
--- OUTSIDE RECORDS SUMMARY | 2022-03-30 02:19 | XMS_ITS | Continuity of Care Document ---
:1990 Author Organization [facility] Address [address] [place] [address]- Care Team Providers Name Role Phone Little KLEIN, Matthew Alejo Primary Care Physician Encounter [facility] Date(s): 03/06/21 - 04/05/[address] [address]- Allergies, Adverse Reactions, Alerts Substance Reaction Severity [...] Subclinical hypothyroidism(Confirmed) Active Vitamin D deficiency(Confirmed) Active 20772: Had a poor response to Topamax in the form of anhidrosis and hyperthermia, therefore D/Stevan.2Was told about 2 years ago, never underwent any extensive W/U. Social History Social History Type Response Smoking Status Never smoker entered on: 05/06/17 Sex
--- OUTSIDE RECORDS SUMMARY | 2022-03-30 02:19 | XMS_ITS | Continuity of Care Document ---
:1990 Author Organization [facility] Address [address] [place] [address]- Care Team Providers Name Role Phone Little KLEIN, Matthew Alejo Primary Care Physician Encounter [facility] Date(s): 02/19/21 - 03/21/[address] [address]- Allergies, Adverse Reactions, Alerts Substance Reaction Severity [...] Subclinical hypothyroidism(Confirmed) Active Vitamin D deficiency(Confirmed) Active 93982: Had a poor response to Topamax in the form of anhidrosis and hyperthermia, therefore D/Stevan.2Was told about 2 years ago, never underwent any extensive W/U. Social History Social History Type Response Smoking Status Never smoker entered on: 05/06/17 Sex
--- OUTSIDE RECORDS SUMMARY | 2022-03-30 02:19 | XMS_ITS | Continuity of Care Document ---
:1990 Author Organization [facility] Address [address] [place] [address]- Care Team Providers Name Role Phone Chato SMITH, Isabela Madden Primary Care Physician Encounter [facility] Date(s): 10/01/21 - 10/31/21 [facility] [address] [place] [address] Attending Physician: Elvie Johnston Admitting Physician: Admtr, Ar8 Referring Physician: Admtr, Ar8 Allergies, Adverse Reactions, Alerts Substance Reaction Severity [...] Subclinical hypothyroidism(Confirmed) Active Vitamin D deficiency(Confirmed) Active 44972: Had a poor response to Topamax in the form of anhidrosis and hyperthermia, therefore D/Stevan.2Was told about 2 years ago, never underwent any extensive W/U. Social History Social History Type Response Smoking Status Never smoker entered on: 05/06/17 Sex Female
--- OUTSIDE RECORDS SUMMARY | 2022-03-30 02:19 | XMS_ITS | Continuity of Care Document ---
:1990 Author Organization [facility] Address [address] [place] [address]- Care Team Providers Name Role Phone Matthew Fitch MD Primary Care Physician Encounter [facility] NBR [id number] Date(s): 05/02/21 - 08/30/21 [facility] [address] [place] [address]- Attending Physician: Matthew Fitch MD Allergies, Adverse [...] Subclinical hypothyroidism(Confirmed) Active Vitamin D deficiency(Confirmed) Active 06418: Had a poor response to Topamax in the form of anhidrosis and hyperthermia, therefore D/Stevan.2Was told about 2 years ago, never underwent any extensive W/U. Social History Social History Type Response Smoking Status Never smoker entered on: 05/06/17 Sex Female
--- OUTSIDE RECORDS SUMMARY | 2022-03-30 02:19 | XMS_ITS | Continuity of Care Document ---
:1990 Author Organization [facility] Address [address] [place] [address]- Care Team Providers Name Role Phone Little KLEIN, Matthew Alejo Primary Care Physician Encounter [facility] Date(s): 02/17/21 - 03/19/[address] [address]- Allergies, Adverse Reactions, Alerts Substance Reaction Severity [...] Subclinical hypothyroidism(Confirmed) Active Vitamin D deficiency(Confirmed) Active 39171: Had a poor response to Topamax in the form of anhidrosis and hyperthermia, therefore D/Stevan.2Was told about 2 years ago, never underwent any extensive W/U. Social History Social History Type Response Smoking Status Never smoker entered on: 05/06/17 Sex
--- OUTSIDE RECORDS SUMMARY | 2022-03-30 02:19 | XMS_ITS | Continuity of Care Document ---
:1990 Author Organization [facility] Address [address], [address] [place] [address]- Care Team Providers Name Role Phone Little KLEIN, Matthew Alejo Primary Care Physician Encounter 03/02/21 - 03/09/21 [facility] [address], [address] [place] [address]- Attending Physician: Brad Brunner DO Admitting Physician: Brad Brunner DO Referring Physician: Brad Brunner DO Allergies, Adverse Reactions, Alerts Substance Reaction Severity Status ibuprofen Active Zofran Active Cats Active Latex Active Strattera Active MetroGel-Vaginal1 Persistent Mild Active 1Vaginal irritation and itching following application Immunizations Given and Recorded Vaccine Date Status Refusal Reason Influenza Virus Vaccine (oldterm) 02/11/21 Recorded tetanus/diphtheria/pertussis, acel(Tdap)1 06/11/10 Given 1Admin Note: Per Patient Medications Jess 0.35 mg oral tablet 1 tablet = 0.35 mg, By Mouth, Daily, 0 Refills, Maintenance, 10/02/19 21:01:00 EDT Start Date: 10/02/19 Status: Ordered Problem List Condition Effective Dates Status Health Status Informant Acne(Confirmed) Active TRACEY positive(Confirmed) Active Asthma(Confirmed) Active ADHD(Confirmed) Active Simple ovarian cyst(Confirmed) Active IBS (irritable bowel Active syndrome)(Confirmed) Encounter for IUD 07/30/16 Active insertion-paragard(Confirmed) Elevated LFTs(Confirmed) Active Migraines(Confirmed)1 Active Raynauds disease(Confirmed)2 Active Delayed sleep phase Active syndrome(Confirmed) Subclinical hypothyroidism(Confirmed) Active Vitamin D deficiency(Confirmed) Active 10531: Had a poor response to Topamax in the form of anhidrosis and hyperthermia, therefore D/Stevan.2Was told about 2 years ago, never underwent any extensive W/U. Social History Social History Type Response Smoking Status Never smoker entered on: 05/06/17 Sex
--- OUTSIDE RECORDS SUMMARY | 2022-03-30 02:19 | XMS_ITS | Continuity of Care Document ---
:1990 Author Organization [facility] Address [address] [place] [address]- Care Team Providers Name Role Phone Victorino KLEIN, Nba Campos Primary Care Physician Encounter [facility] NBR [id number] Date(s): 10/02/19 - 10/03/[address] [address]- [facility] Discharge Disposition: A-D/C Home Attending Physician: Bria Obregon MD Admitting Physician: Bria Obregon MD Referring Physician: Not on Staff, Referring MD Allergies, Adverse Reactions, Alerts Substance Reaction [...] phase Active syndrome(Confirmed) Vitamin D deficiency(Confirmed) Active 66354: Had a poor response to Topamax in the form of anhidrosis and hyperthermia, therefore D/Stevan.2Was told about 2 years ago, never underwent any extensive W/U. Vital Signs Most recent to oldest [Reference Range]: 1 Height 170 cm (10/02/19 8:51 PM) Weight 64.7 kg (10/02/19 8:51 PM) Oxygen Saturation [94-100 %] 100 % (10/02/19 8:51 PM) Pulse Rate [55-90 bpm] 72 bpm (10/02/19 8:51 PM) Blood Pressure [90-138/55-84 mm Hg] 112/73 mm Hg (10/02/19 8:51 PM) Respiratory Rate [16-30 br/min] 16 br/min (10/02/19 8:51 PM) Temperature [96.8-100.4 DegF] 97.8 DegF (10/02/19 8:51 PM) Mode of Delivery (Oxygen) Room air (10/02/19 8:51 PM) Blood pressure sites Arm, right (10/02/19 8:51 PM) Temperature Route Temporal (10/02/19 8:51 PM) Dry Weight 64.7 kg (10/02/19 8:51 PM) Weight Obtained Via Standing scale (10/02/19 8:51 PM) Dry Weight Obtained Via Standing scale (10/02/19 8:51 PM) Social History Social History Type Response Smoking Status Never smoker entered on: 05/06/17 Sex
--- OUTSIDE RECORDS SUMMARY | 2022-03-30 02:19 | XMS_ITS | Continuity of Care Document ---
:1990 Author Organization [facility] Address [address] [place] [address]- Care Team Providers Name Role Phone Little KLEIN, Matthew Alejo Primary Care Physician Encounter [facility] Date(s): 02/26/21 - 03/28/21 [facility] [address] [place] [address]- Allergies, Adverse Reactions, Alerts Substance Reaction Severity [...] Subclinical hypothyroidism(Confirmed) Active Vitamin D deficiency(Confirmed) Active 57097: Had a poor response to Topamax in the form of anhidrosis and hyperthermia, therefore D/Stevan.2Was told about 2 years ago, never underwent any extensive W/U. Social History Social History Type Response Smoking Status Never smoker entered on: 05/06/17 Sex
--- OUTSIDE RECORDS SUMMARY | 2022-03-30 02:19 | XMS_ITS | Continuity of Care Document ---
:1990 Author Organization [facility] Address [address] [place] [address]- Care Team Providers Name Role Phone Little KLEIN, Matthew Alejo Primary Care Physician Encounter [facility] Date(s): 06/15/21 - 07/15/[address] [address]- Allergies, Adverse Reactions, Alerts Substance Reaction Severity [...] Subclinical hypothyroidism(Confirmed) Active Vitamin D deficiency(Confirmed) Active 03084: Had a poor response to Topamax in the form of anhidrosis and hyperthermia, therefore D/Stevan.2Was told about 2 years ago, never underwent any extensive W/U. Social History Social History Type Response Smoking Status Never smoker entered on: 05/06/17 Sex
--- OUTSIDE RECORDS SUMMARY | 2022-03-30 02:19 | XMS_ITS | Continuity of Care Document ---
:1990 Author Organization [facility] Address [address] [place] [address]- Care Team Providers Name Role Phone Matthew Fitch MD Primary Care Physician Encounter [facility] NBR [id number] Date(s): 08/12/21 - 09/11/[address] [address] Attending Physician: Admmarvel, Elvie Admitting Physician: Admtr, Ar8 Referring Physician: Admtr, [...] Subclinical hypothyroidism(Confirmed) Active Vitamin D deficiency(Confirmed) Active 23296: Had a poor response to Topamax in the form of anhidrosis and hyperthermia, therefore D/Stevan.2Was told about 2 years ago, never underwent any extensive W/U. Social History Social History Type Response Smoking Status Never smoker entered on: 05/06/17 Sex Female
--- OUTSIDE RECORDS SUMMARY | 2022-03-30 02:19 | XMS_ITS | Continuity of Care Document ---
:1990 Author Organization [facility] Address [address] [address]- Care Team Providers Name Role Phone Victorino KLEIN, Nba Campos Primary Care Physician En[place] [facility] Date(s): 07/29/20 - 08/28/20 [facility] [address] [address]- Allergies, Adverse Reactions, Alerts Substance Reaction Severity [...] phase Active syndrome(Confirmed) Vitamin D deficiency(Confirmed) Active 45571: Had a poor response to Topamax in the form of anhidrosis and hyperthermia, therefore D/Stevan.2Was told about 2 years ago, never underwent any extensive W/U. Social History Social History Type Response Smoking Status Never smoker entered on: 05/06/17 Sex
--- OUTSIDE RECORDS SUMMARY | 2022-03-30 02:19 | XMS_ITS | Continuity of Care Document ---
:1990 Author Organization [facility] Address [address] [place] [address]- Care Team Providers Name Role Phone Matthew Fitch MD Primary Care Physician Encounter [facility] NBR [id number] Date(s): 08/11/21 - 09/11/[address] [address]- Attending Physician: Matthew Fitch MD Allergies, Adverse [...] Subclinical hypothyroidism(Confirmed) Active Vitamin D deficiency(Confirmed) Active 05398: Had a poor response to Topamax in the form of anhidrosis and hyperthermia, therefore D/Stevan.2Was told about 2 years ago, never underwent any extensive W/U. Social History Social History Type Response Smoking Status Never smoker entered on: 05/06/17 Sex Female
--- OUTSIDE RECORDS SUMMARY | 2022-03-30 02:19 | XMS_ITS | Continuity of Care Document ---
:1990 Author Organization [facility] Address [address] [place] [address]- Care Team Providers Name Role Phone Chato SMITH, Isabela Madden Primary Care Physician Encounter [facility] Date(s): 12/04/21 - 01/03/22 [facility] [address] [place], [place] [address] Attending Physician: Admmarvel, Michel8 Admitting Physician: Admtr, Ar8 Referring Physician: Admtr, Ar8 Allergies, Adverse Reactions, Alerts Substance Reaction Severity Status ibuprofen Active Zofran Active Latex Active MetroGel-Vaginal1 Persistent Mild Active Cats Active Strattera Active 1Vaginal irritation and itching following application [...] Subclinical hypothyroidism(Confirmed) Active Vitamin D deficiency(Confirmed) Active 95621: Had a poor response to Topamax in the form of anhidrosis and hyperthermia, therefore D/Stevan.2Was told about 2 years ago, never underwent any extensive W/U. Social History Social History Type Response Smoking Status Never smoker entered on: 05/06/17 Sex Female Care Team PersonnelName: Isabela Reis NP Address: [address] [place] [address] Primary Care [place], [place] [address]
== END 2022-03-30 04:54 | disposition home or self-care (01) ==
PROVIDERS: Emergency Provider Emergency Medicine
DX: R10.31 Right lower quadrant pain (principal); R10.2 Pelvic and perineal pain; Z79.899 Other long term (current) drug therapy
CPT/HCPCS: 36415; 74176; 76830; 76856; 80048; 80076; 81003; 84702; 85025; 93975; 96374; 99283; 99284; J1885

== ENCOUNTER 2022-04-26 09:09 | Outpatient (REF) | payer OTHER, SELFPAY ==
[2022-04-26 12:44] LABS: Influenza A PCR POSITIVE (Negative); Influenza B PCR NEGATIVE (Negative); Resp Syncy Virus RNA Qual PCR NEGATIVE (Negative); SARS COV2 PCR INHOUSE NEGATIVE (Negative)
== END 2022-04-26 09:10 | disposition home or self-care (01) ==
LOC: HO.LAB 09:09
PROVIDERS: Visit Provider Internal Medicine
DX: Z20.822 Contact with and (suspected) exposure to COVID-19 (principal); R09.89 Other specified symptoms and signs involving the circulatory and respiratory systems
CPT/HCPCS: 0241U

== ENCOUNTER 2022-04-28 06:24 | Emergency (ER) | payer OTHER, SELFPAY ==
--- NOTE | 2022-04-28 | ECG_ITS ---
Test Reason : CP Blood Pressure : / mmHG Vent. Rate : 101 BPM Atrial Rate : 101 BPM P-R Int : 174 ms QRS Dur : 070 ms QT Int : 294 ms P-R-T Axes : 074 034 060 degrees QTc Int : 381 ms Sinus tachycardia Possible Left atrial enlargement Septal infarct , age undetermined Abnormal ECG No previous ECGs available Referred By: Generic ED Physician Electronically Signed By:Donte Kelly
[2022-04-28 06:51] VITALS: BMI 20.9
[2022-04-28 06:53] VITALS: BP 119/67; PULSE 103; RESP 22; TEMP 38.1; O2SAT 97
--- NOTE | 2022-04-28 07:15 | ED.GENADULT ---
HPI - General Adult General Chief complaint: General Medical Stated complaint: chest pain Time Seen by Provider: 04/28/22 06:52 Source: patient Mode of arrival: ambulatory History of Present Illness HPI narrative: 31-year-old female with history of IBS presents with body aches, chest pain associated with cough, fevers, chills, headache, initially sore throat when her symptoms started on Tuesday that has now resolved, cough still persist. Patient has positive sick contacts of influenza from both her significant other and her child. Related Data Home Medications Medication Instructions Recorded Confirmed diindolylmethane 75 mg-turmeric cap PO 03/23/22 03/23/22 125 mg-black pepper 1.25 mg capsule levothyroxine 50 mcg tablet 50 mcg PO DAILY 03/23/22 03/23/22 norethindrone (contraceptive) 0.35 0.35 mg PO DAILY 03/23/22 03/23/22 mg tablet Previous Rx's Medication Instructions Recorded benzonatate 200 mg capsule 200 mg PO TID PRN cough #10 caps 04/28/22 Allergies Allergy/AdvReac Type Severity Reaction Status Date / Time ondansetron Allergy Unknown SWELLING Verified 04/26/22 08:25 [From ZOFRAN ( HYDROCHLORIDE)] Review of Systems Review of Systems: Pertinent positives and negatives as stated in HPI 10 point review of systems is otherwise negative. PMFSH Past Medical History Source: nursing notes reviewed Medical History Mayi's disease Ovarian cyst Social History Social History Alcohol intake: current Alcohol intake frequency: 0-2 drinks per day Smoked in Last 30 Days: No Use of substances other than those prescribed or required for medical reasons: No Advance Directives: No Physical Exam ED Vital Signs: Vital Signs - 24 hr 04/28/22 06:53 04/28/22 08:03 Temperature 100.5 F H 100.1 F Pulse Rate 103 H 90 Respiratory Rate 22 H 13 Blood Pressure 119/67 120/77 Pulse Oximetry 97 99 Oxygen Delivery Method Room Air Room Air BMI result Body Mass Index 20.9 VITAL SIGNS: Reviewed. GENERAL: Well developed, well nourished, in mild distress. HEAD: Normocephalic/atraumatic EYES: PERRLA, EOMI EARS: Ext canals without abnormality, TMs non-bulging and non-erythematous NOSE: Nares patent bilateral OROPHARYNX: no oral lesions noted, posterior pharynx clear and non-erythematous without noted tonsillar enlargement/erythema/exudates NECK: Supple, no adenopathy LUNGS: Normal breath sounds. No adventitious sounds or accessory muscle use. SpO2<97> CARDIOVASCULAR: Sinus tachycardia and rhythm without noted murmurs ABDOMEN: Soft, non-tender, non-distended with bowel sounds. SKIN: Inspection of the skin reveals no rashes NEUROLOGIC: Alert and oriented x 4. Strength and sensation to light touch were grossly intact x 4. Course Course Course Narrative: 1 g Tylenol/200 mg Tessalon/EKG/U preg Medications Administered Discontinued Medications Generic Name Dose Route Start Last Admin Trade Name Freq PRN Reason Stop Dose Admin Acetaminophen 975 mg 04/28/22 06:59 04/28/22 08:00 Acetaminophen 325 Mg Tablet PO 04/28/22 07:00 975 mg ONCE ONE Administration Benzonatate 200 mg 04/28/22 07:16 04/28/22 08:01 Benzonatate 100 Mg Capsule PO 04/28/22 07:17 200 mg ONCE ONE Administration Medical Decision Making Medical Decision Making MDM Narrative: 31-year-old female with history and clinical presentation most consistent with viral syndrome and cough related chest pain. Sinus tachycardia secondary to febrile state Differential Diagnosis Differential Diagnoses: The differential diagnosis associated with the presentation includes Viral syndrome/influenza a/COVID/RSV/pleurisy Lab Data MDM Lab Attestation statement: I reviewed the patient's lab results. And noted that patient already knew that she was influenza A positive on 04/26. Although patient feels poorly she is hemodynamically stable and will receive a prescription for Tessalon for cough control and recommend that she continue with the 1 g of Tylenol every 6 hours for body aches, headaches and increase her water intake. Labs: Lab Results 04/28/22 Range/Units 07:05 Influenza Type A (PCR) POSITIVE A (Negative) Influenza Type B (PCR) NEGATIVE (Negative) RSV RNA Qual (PCR) NEGATIVE (Negative) SARS-CoV-2 RNA (RT-PCR) NEGATIVE (Negative) Independent Interpretation I performed an independent interpretation of an: EKG Interpretation: Sinus tachycardia, HR-101, no STEMI, [place]/QRS/QTC are within normal limits. External Record Review Reviewed prior labs. Discharge Plan Discharge Clinical Impression: Viral syndrome, Influenza A Patient Disposition: Home, Self-Care Instructions: Influenza (ED), Viral Syndrome (ED) Additional Instructions: 1. Tylenol 1000 mg, orally, every 6 hours as needed for pain control. Do not exceed 4000 mg within 24 hours. 2. Recommend NyQuil at night for cough control, be mindful that there is Tylenol in this medication and needs to be considered. 3. Recommend bedside cool mist humidifier for additional symptom control. 4. I sent a prescription for Tessalon to your pharmacy. Return to the ER for worsening symptoms. Prescriptions: New benzonatate 200 mg capsule 200 mg PO TID PRN (Reason: cough) Qty: 10 0RF No Action levothyroxine 50 mcg tablet 50 mcg PO DAILY norethindrone (contraceptive) 0.35 mg tablet 0.35 mg PO DAILY [id number]-[id number] 75-125-1.25 mg capsule PO Stand Alone Forms: Work/School Release
[2022-04-28 07:48] LABS: Influenza A PCR POSITIVE (Negative); Influenza B PCR NEGATIVE (Negative); Resp Syncy Virus RNA Qual PCR NEGATIVE (Negative); SARS COV2 PCR INHOUSE NEGATIVE (Negative)
[2022-04-28] MEDS: Acetaminophen 325 MG TABLET 975 MG PO (08:00)
[2022-04-28] MEDS: Benzonatate 100 MG CAPSULE 200 MG PO (08:01)
[2022-04-28 08:03] VITALS: BP 120/77; PULSE 90; RESP 13; TEMP 37.8; O2SAT 99
== END 2022-04-28 09:12 | disposition home or self-care (01) ==
PROVIDERS: Emergency Provider Student in an Organized Health Care Education/Training Program
DX: J11.1 Influenza due to unidentified influenza virus with other respiratory manifestations (principal); R50.9 Fever, unspecified; Z20.822 Contact with and (suspected) exposure to COVID-19
CPT/HCPCS: 0241U; 93005; 99283; 99284

== ENCOUNTER 2022-05-18 09:26 | Outpatient (REF) | payer OTHER, SELFPAY | END 2022-05-18 09:27 | disposition home or self-care (01) | LOC: HO.HMGCLDS 09:26 | PROVIDERS: PCP Internal Medicine; Visit Provider Internal Medicine | DX: E83.10 Disorder of iron metabolism, unspecified (principal) | CPT/HCPCS: 36415; 81256 ==

== ENCOUNTER 2022-06-11 07:06 | Outpatient (REF) | payer OTHER, SELFPAY ==
[2022-06-11 07:41] LABS: COVID-19 Test Negative (Negative); IDNOW Serial# BCCEAD1C
[2022-06-11 07:44] LABS: IDNOW Serial# 9DB6401D; Influenza A Negative (Negative); Influenza B2 Positive (Negative)
== END 2022-06-11 07:07 | disposition home or self-care (01) ==
LOC: HO.LAB 07:06
PROVIDERS: Visit Provider Internal Medicine
DX: Z20.822 Contact with and (suspected) exposure to COVID-19 (principal)
CPT/HCPCS: 87502; 87635

== ENCOUNTER 2022-06-25 08:02 | Outpatient (REF) | payer OTHER, SELFPAY ==
[2022-06-25 09:37] LABS: HBS Num1 132.87 mIU/mL (0-7.99); HBc Num1 0.08 S/CO (0.00-0.79); HBsAGNum1 0.22 S/CO (0.00-0.99); Hepatitis B Core Antibody Nonreactive (Nonreactive); Hepatitis B Surface Antigen Negative (Negative); ~Hepatitis B Surface Antibody REACTIVE (Nonreactive)
[2022-06-28 21:08] LABS: Rubella IgG Antibody 7.92 Index
== END 2022-06-25 08:03 | disposition home or self-care (01) ==
LOC: HO.LAB 08:02
PROVIDERS: PCP Internal Medicine; Visit Provider Internal Medicine
DX: Z01.84 Encounter for antibody response examination (principal)
CPT/HCPCS: 36415; 86704; 86706; 86735; 86762; 86765; 86787; 87340

== ENCOUNTER 2022-07-10 13:10 | Outpatient (REF) | payer OTHER, SELFPAY ==
[2022-07-10 14:39] LABS: Influenza A PCR NEGATIVE (Negative); Influenza B PCR NEGATIVE (Negative); Resp Syncy Virus RNA Qual PCR NEGATIVE (Negative); SARS COV2 PCR INHOUSE NEGATIVE (Negative)
== END 2022-07-10 13:11 | disposition home or self-care (01) ==
LOC: HO.LNP 13:10
PROVIDERS: Visit Provider Physician Assistant Medical
DX: Z20.822 Contact with and (suspected) exposure to COVID-19 (principal); R05.9 Cough, unspecified; J02.9 Acute pharyngitis, unspecified
CPT/HCPCS: 0241U; 87070

== ENCOUNTER 2022-11-24 10:01 | Emergency (ER) | payer OTHER, SELFPAY ==
--- NOTE | ~2022-11-24 | US_ITS ---
EXAMINATION: US SOFT TISSUE NECK CLINICAL INFORMATION: Growth and anterior neck COMPARISON: None available. TECHNIQUE: Ultrasound of the submental neck soft tissues is performed with high- frequency vyas-scale imaging and color Doppler. FINDINGS: There is a 5 x 4 x 5 mm solid mixed hypo and hyperechoic lesion suggestive of a lymph node in the submental region corresponding to palpable abnormality. This is normal in size. This demonstrates normal ultrasound morphology and flow. US/US soft tiss head and/or neck IMPRESSION: Palpable abnormality likely corresponds to a submental lymph node.
[2022-11-24 10:07] VITALS: BP 119/76; PULSE 66; RESP 18; TEMP 36.4; O2SAT 100; BMI 21.0
[2022-11-24 10:29] LABS: MANUAL DIFF FLAG NO
--- NOTE | 2022-11-24 10:29 | ED.GENADULT ---
HPI - General Adult General Chief complaint: General Medical Stated complaint: Lump Near Thyroid Gland Time Seen by Provider: 11/24/22 10:29 Source: patient Mode of arrival: ambulatory Limitations: no limitations History of Present Illness HPI narrative: Patient is a 32 year old assigned female at with a history of francisco's disease and kidney stones presenting to the emergency department today feeling generally unwell and having a swollen lymph node. Patient states that over the last few weeks she has felt more fatigued and has noticed a swollen lymph node in the anterior portion of her neck just before her chin. Patient denies any dizziness, lightheadedness, abdominal pain, nausea, vomiting, fever, chills, blurry vision, double vision, loss of vision, chest pain, difficulty breathing, shortness of breath, back pain, night sweats, pain with urination, increased urinary frequency, increased urinary urgency, blood in her urine or stool, syncope or a near syncopal episode, recent trauma or falls, bowel incontinence, bladder incontinence, bowel retention, bladder retention, or any other complaints at this time. Onset (ago): week(s) Severity: mild Severity scale (1-10): 2 Quality: aching Pain Consistency: constant Relieving factors: none Exacerbating factors: none Associated symptoms: denies other symptoms Treatments prior to arrival: none Related Data Home Medications Medication Instructions Recorded Confirmed diindolylmethane 75 mg-turmeric cap PO 03/23/22 03/23/22 125 mg-black pepper 1.25 mg capsule levothyroxine 50 mcg tablet 50 mcg PO DAILY 03/23/22 03/23/22 norethindrone (contraceptive) 0.35 0.35 mg PO DAILY 03/23/22 03/23/22 mg tablet minocycline 50 mg capsule 50 mg PO BID 07/10/22 Previous Rx's Medication Instructions Recorded amoxicillin 875 mg-potassium 1 tab PO BID #10 tabs 07/10/22 clavulanate 125 mg tablet Allergies Allergy/AdvReac Type Severity Reaction Status Date / Time ondansetron Allergy Unknown SWELLING Verified 07/10/22 11:34 [From ZOFRAN ( HYDROCHLORIDE)] Review of Systems Constitutional: Constitutional: Reports no additional constitutional complaints, Denies chills, Reports fatigue, Denies fever(s) and Denies night sweats Eyes: Eyes: Reports no additional eye complaints, Denies blurry vision, Denies change in vision, Denies diplopia, Denies eye discharge, Denies loss of vision and Denies eye pain ENT: Denies dizziness Comments: swollen lymph node to anterior neck Cardiovascular: Cardiovascular: Reports no additional cardiovascular complaints, Denies chest pain, Denies lightheadedness, Denies Loss of Consciousness and Denies dyspnea Respiratory: Respiratory: Reports no additional respiratory complaints and Denies dyspnea Gastrointestinal: Gastrointestinal: Reports no additional gastrointestinal complaints, Denies abdominal pain, Denies melena, Denies hematochezia, Denies change in bowel habits and Denies change in stool character Genitourinary: Genitourinary: Denies hematuria, Denies urinary frequency, Denies dysuria, Denies urinary incontinence, Denies urinary hesitancy and Denies urinary urgency Musculoskeletal: Musculoskeletal: Reports no additional musculoskeletal complaints, Denies numbness and Denies tingling Neurologic: Denies dizziness, Denies loss of vision, Denies numbness and Denies tingling Psychiatric: Psychiatric: Reports no additional psychiatric complaints Endocrine: Endocrine: Reports no additional endocrine complaints and Reports fatigue Hematologic/Lymphatic: Hematologic/Lymphatic: Reports no additional hematologic/lymphatic complaints Allergic/Immunologic: Allergic/Immunologic: Reports no additional allergic/immunologic complaints PMFSH Past Medical History Attestation statement: The following information was validated with the patient. Source: old records reviewed and nursing notes reviewed Medical History (Updated 11/24/22 @ 14:30 by SIRENA Bowman) Cervical cancer screening Counseling for control, oral contraceptives Francisco's disease Ovarian cyst Screen for sexually transmitted diseases Upper respiratory tract infection Well woman exam with routine gynecological exam Social History Social History Alcohol intake: current Alcohol intake frequency: does not drink Smoked in Last 30 Days: No Use of substances other than those prescribed or required for medical reasons: No Advance Directives: No Advance Directives Information Provided: No Physical Exam ED Vital Signs: Vital Signs - 24 hr 11/24/22 10:07 Temperature 97.6 F Pulse Rate 66 Respiratory Rate 18 Blood Pressure 119/76 Pulse Oximetry 100 Oxygen Delivery Method Room Air BMI result Body Mass Index 21.0 Const General: cooperative, no acute distress, alert and awake Nutritional Appearance: well nourished Orientation/consciousness: patient oriented x3 Limitations: no limitations HENMT Head: Yes normal to inspection and Yes atraumatic Ears: hearing grossly normal bilaterally and external ears normal General nose exam: Normal external nose present, no nasal discharge noted and no epistaxis Face and sinus: Yes normal facial exam, No abrasion and No laceration Mouth: Normal oral and palatal mucosa present, no drooling and no muffled voice Eyes General: appearance normal, both eyes and all related structures Periorbital: periorbital findings normal Eyelids: Yes eyelids normal Conjunctivae: conjunctivae normal Pupils: Equal, round and reactive pupils present EOM: EOMs intact bilaterally Neck Neck: Yes normal visual inspection and Yes full ROM Neck images: 1. swollen lymph node, mobile Chest Chest palpation & inspection: normal inspection of the chest Resp Effort & Inspection: normal respiratory effort and able to speak in complete sentences GI Inspection: Yes normal to inspection Neuro General: patient oriented x3 and moves all extremities Cranial nerves: Yes Equal, round and reactive pupils present Cognition (Neuro): normal cognition Motor exam (neuro): 5/5 motor strength present throughout Sensory Exam: Normal double simultaneous stimulation for sensation Coordination: kntldw-[id number] test normal Extrem General: Yes normal to inspection, Yes full ROM and Yes capillary refill normal Psych Appearance: grossly normal Mental Status: mental status grossly normal Affect: normal affect Attitude: cooperative Thought process: Normal thought process present Thought content: Normal thought content present Insight: Good insight present (Psych) Medical Decision Making Medical Decision Making MDM Narrative: Patient is a 32 year old assigned female at with a history of kidney stones and francisco's disease presenting to the emergency department today with fatigue and a swollen lymph node. Patient's physical exam showed a swollen, mobile, suprahilar lymph node but was otherwise unremarkable. Patient's blood work showed an elevated TSH however, the patient informed me she just restarted her levothryoxine and will follow up with her primary care about it. The rest of the patient's labs were grossly normal. Patient's US of the neck showed a submental lymph node. I explained my physical exam findings as well as all test results to the patient. I answered all questions asked by the patient. I stressed the importance of the patient taking her medication as prescribed. I stressed the importance of the patient following up with her primary care provider and a general surgeon for her swollen lymph node. I stressed the importance of the patient returning to the emergency department immediately if her symptoms were to worsen or if she were to develop any dizziness, shortness of breath, difficulty breathing, chest pain, blurry vision, loss of vision, nausea, vomiting, abdominal pain, fever, chills, back pain, or any other complaints. Patient verbalized agreement and understanding with this treatment plan and discharge.. Differential Diagnosis Differential Diagnoses: The differential diagnosis associated with the presentation includes Swollen lymph node Viral illness Lymphoma Strep COVID-19 Influenza Mononucleosis Admission/Observation Consideration of admission/observation: Escalation of care including admission/observation considered Patient would have been admitted to the hospital had her work up had any findings where hospital admission was appropriate and her clinical presentation warranted hospital admission. Lab Data [facility] Lab Attestation statement: I reviewed the patient's lab results. My interpretation of these studies and their corresponding values are discussed in the MDM portion of this note. 11/24/22 10:25 11/24/22 10:25 Labs: Lab Results 11/24/22 11/24/22 11/24/22 Range/Units 10:25 10:25 11:16 WBC 5.9 (4.8-10.8) X10*3/uL RBC 4.43 (4.20-5.50) X10*6/uL Hgb 11.7 L (12.0-16.0) g/dl Hct 37.8 (37.0-47.0) % MCV 85.3 (80.0-98.0) fL MCH 26.4 L (27.0-33.0) pg MCHC 31.0 (31.0-35.0) g/dl RDW 12.6 (11.0-16.0) % Plt Count 230 (160-400) X10*3/uL MPV 10.6 (9.4-12.3) fL Immature Gran % (Auto) 0.3 (0.0-0.4) % Neut % (Auto) 47.5 (45-73) % Lymph % (Auto) 40.5 H (20-40) % [place] % (Auto) 8.3 (2-11) % Eos % (Auto) 2.9 (0-4) % Baso % (Auto) 0.5 (0-2) % Lymph # (Auto) 2.4 (1.2-4.9) X10*3/uL [place] # (Auto) 0.5 (0.1-1.2) X10*3/uL Eos # (Auto) 0.2 (0.0-0.4) X10*3/uL Baso # (Auto) 0.0 (0.0-0.2) X10*3/uL Abs Immat Gran (auto) 0.02 (0.00-0.03) X10*3/uL Absolute Neuts (auto) 2.8 (2.0-8.3) x10*3/uL Absolute Nucleated RBC 0.000 (0.0-0.012) X10*3/uL Nucleated RBC % (auto) 0.0 (0.0-0.2) /100WBC Sodium 140 (135-145) mmol/L Potassium 3.9 (3.3-5.1) mmol/L Chloride 108 (96-108) mmol/L Carbon Dioxide 27 (22-29) mmol/L Anion Gap 9 L (12-20) BUN 11 (9-16) mg/dL Creatinine 0.73 (0.5-1.4) mg/dL Estim Creat Clear Calc 105.1 Estimated GFR > 60 Random Glucose 87 (60-115) mg/dL Calcium 9.5 (8.4-10.2) mg/dL Total Bilirubin 0.2 (0.0-1.0) mg/dL AST 20 (5-31) U/L ALT 11 (0-31) U/L Alkaline Phosphatase 52 (39-117) U/L Total Protein 6.6 (6.5-8.0) g/dL Albumin 4.1 (3.5-5.0) g/dL TSH 4.87 H (0.32-4.0) uIU/mL COVID-19 (FRANSISCO) (Negative) COVID-19 Clin Com Monoscreen (Negative) Influenza Type A (DERRICK) Negative (Negative) Influenza Type B (DERRICK) Negative (Negative) Influenza A & B Note See Note S. pyogenes GrpA DERRICK (Negative) 11/24/22 11/24/22 11/24/22 Range/Units 11:16 11:16 11:16 WBC (4.8-10.8) X10*3/uL RBC (4.20-5.50) X10*6/uL Hgb (12.0-16.0) g/dl Hct (37.0-47.0) % MCV (80.0-98.0) fL MCH (27.0-33.0) pg MCHC (31.0-35.0) g/dl RDW (11.0-16.0) % Plt Count (160-400) X10*3/uL MPV (9.4-12.3) fL Immature Gran % (Auto) (0.0-0.4) % Neut % (Auto) (45-73) % Lymph % (Auto) (20-40) % [place] % (Auto) (2-11) % Eos % (Auto) (0-4) % Baso % (Auto) (0-2) % Lymph # (Auto) (1.2-4.9) X10*3/uL [place] # (Auto) (0.1-1.2) X10*3/uL Eos # (Auto) (0.0-0.4) X10*3/uL Baso # (Auto) (0.0-0.2) X10*3/uL Abs Immat Gran (auto) (0.00-0.03) X10*3/uL Absolute Neuts (auto) (2.0-8.3) x10*3/uL Absolute Nucleated RBC (0.0-0.012) X10*3/uL Nucleated RBC % (auto) (0.0-0.2) /100WBC Sodium (135-145) mmol/L Potassium (3.3-5.1) mmol/L Chloride (96-108) mmol/L Carbon Dioxide (22-29) mmol/L Anion Gap (12-20) BUN (9-16) mg/dL Creatinine (0.5-1.4) mg/dL Estim Creat Clear Calc Estimated GFR Random Glucose (60-115) mg/dL Calcium (8.4-10.2) mg/dL Total Bilirubin (0.0-1.0) mg/dL AST (5-31) U/L ALT (0-31) U/L Alkaline Phosphatase (39-117) U/L Total Protein (6.5-8.0) g/dL Albumin (3.5-5.0) g/dL TSH (0.32-4.0) uIU/mL COVID-19 (FRANSISCO) Negative (Negative) COVID-19 Clin Com See Note Monoscreen Negative (Negative) Influenza Type A (DERRICK) (Negative) Influenza Type B (DERRICK) (Negative) Influenza A & B Note S. pyogenes GrpA DERRICK Negative (Negative) Independent Interpretation I performed an independent interpretation of an: Ultrasound Interpretation: My interpretation is in agreement with the radiologist's impression of this imaging study. EXAMINATION: US SOFT TISSUE NECK CLINICAL INFORMATION: Growth and anterior neck COMPARISON: None available. TECHNIQUE: Ultrasound of the submental neck soft tissues is performed with high- frequency vyas-scale imaging and color Doppler. FINDINGS: There is a 5 x 4 x 5 mm solid mixed hypo and hyperechoic lesion suggestive of a lymph node in the submental region corresponding to palpable abnormality. This is normal in size. This demonstrates normal ultrasound morphology and flow. US/US soft tiss head and/or neck IMPRESSION: Palpable abnormality likely corresponds to a submental lymph node. Dictated By: Babs Dia MD Signed By: Electronically signed by Babs Dia MD 11/24/22 1416 Radiology Impression Discussion of test interpretation with radiology: I have reviewed the radiologist's reading. Discharge Plan Discharge Clinical Impression: Viral illness, Swelling of lymph node Patient Disposition: Home, Self-Care Instructions: Lymphadenopathy (ED), Viral Syndrome (ED) Additional Instructions: Follow up with your primary care provider and a general surgeon to discuss your lymphadenopathy. Return to the emergency department immediately if your symptoms worsen or if you develop any dizziness, shortness of breath, difficulty breathing, chest pain, blurry vision, loss of vision, nausea, vomiting, abdominal pain, fever, chills, back pain, or any other complaints. Prescriptions: No Action minocycline 50 mg capsule 50 mg PO BID amoxicillin-pot clavulanate 875-125 mg tablet 1 tab PO BID Qty: 10 0RF levothyroxine 50 mcg tablet 50 mcg PO DAILY norethindrone (contraceptive) 0.35 mg tablet 0.35 mg PO DAILY nfhtudixksscl-wmvcmmes-wllugk 75-125-1.25 mg capsule PO Referrals: [facility] General Surgeons [Provider Group] (Call to establish and follow up with a general surgeon to discuss your lymphadenopathy. ) Nba Gleason MD [Primary Care Provider] - Discharge Date/Time: 11/24/22 14:53 Print Language: Croatian
[2022-11-24 10:31] LABS: Basophils Percent Auto 0.5 % (0-2); Eosinophils Absolute Auto 0.2 X10*3/uL (0.0-0.4); Eosinophils Percent Auto 2.9 % (0-4); Hematocrit 37.8 % (37.0-47.0); Hemoglobin 11.7 g/dl (12.0-16.0); Imm Gran Abs Auto 0.02 X10*3/uL (0.00-0.03); Imm Gran Pct Auto 0.3 % (0.0-0.4); Lymphocytes Absolute Auto 2.4 X10*3/uL (1.2-4.9); Lymphocytes Percent Auto 40.5 % (20-40); Mean Corpuscular Hemoglobin 26.4 pg (27.0-33.0); Mean Corpuscular Volume 85.3 fL (80.0-98.0); Mean Platelet Volume 10.6 fL (9.4-12.3); Monocytes Absolute Auto 0.5 X10*3/uL (0.1-1.2); Monocytes Percent Auto 8.3 % (2-11); Neutrophils Absolute Auto 2.8 x10*3/uL (2.0-8.3); Neutrophils Percent Auto 47.5 % (45-73); Platelet Count 230 X10*3/uL (160-400); Red Blood Count 4.43 X10*6/uL (4.20-5.50); Red Cell Distribution Width 12.6 % (11.0-16.0); White Blood Count 5.9 X10*3/uL (4.8-10.8)
[2022-11-24 10:47] LABS: Alanine Aminotransferase 11 U/L (0-31); Albumin Level 4.1 g/dL (3.5-5.0); Alkaline Phosphatase 52 U/L (39-117); Anion Gap 9 (12-20); Aspartate Amino Transferase 20 U/L (5-31); Bilirubin Total 0.2 mg/dL (0.0-1.0); Blood Urea Nitrogen 11 mg/dL (9-16); Calcium 9.5 mg/dL (8.4-10.2); Carbon Dioxide 27 mmol/L (22-29); Chloride 108 mmol/L (96-108); Creatinine Clr Calc Pharmacy 105.1; Estimated Glomerular Filt Rate > 60; Glucose Random 87 mg/dL (60-115); Potassium 3.9 mmol/L (3.3-5.1); Sodium 140 mmol/L (135-145); Total Protein 6.6 g/dL (6.5-8.0)
[2022-11-24 11:41] LABS: IDNOW Serial# 08D9AD1C; Strep A Nucleic Acid Negative (Negative)
[2022-11-24 11:44] LABS: COVID-19 Test Negative (Negative); IDNOW Serial# 9DB6401D
[2022-11-24 11:47] LABS: IDNOW Serial# BCCEAD1C; Influenza A Negative (Negative); Influenza B2 Negative (Negative)
[2022-11-24 11:50] LABS: Monotest Negative (Negative)
[2022-11-24 15:42] LABS: TSH reflex Free T4 4.87 uIU/mL (0.32-4.0)
[2022-11-24 18:06] LABS: Free T4 (Free Thyroxine) 1.07 ng/dL (0.71-1.85)
== END 2022-11-24 14:53 | disposition home or self-care (01) ==
PROVIDERS: Physician Assistant Medical; Emergency Provider Emergency Medicine; PCP Internal Medicine
DX: B34.9 Viral infection, unspecified (principal); R59.9 Enlarged lymph nodes, unspecified; Z20.822 Contact with and (suspected) exposure to COVID-19; E06.3 Autoimmune thyroiditis
CPT/HCPCS: 36415; 76536; 80053; 84439; 84443; 85025; 86308; 87502; 87635; 87651; 99284

== ENCOUNTER → 2022-11-25 13:21 | Outpatient (BNVA) | payer OTHER, SELFPAY | PROVIDERS: PCP Internal Medicine; Visit Provider Surgery ==

== ENCOUNTER 2022-11-25 13:22 | Outpatient (AMB) | payer OTHER, SELFPAY ==
--- NOTE | 2022-11-25 13:22 | MHC.OFFVIS ---
Intake Vital Signs 11/25/22 13:32 Height 5 ft 7 in Weight 139 lb BMI 21.8 BP 108/65 Blood Pressure Location Lt brachial Position Sitting Pulse 77 Intake Visit Reasons: Swollen lymph node anterior neck Intake Note: Patient is seen in office for ER follow up visit, following swollen lymph node of the anterior neck. Patient c/o: past couple of weeks been feeling tired, fatigue, joint pain, thought it was due to [place] she had in the past, experiencing neck pain for the last couple of days, and notice a painful to the touch nodule at the neck, hard ball , since last night throat been hurting, unsure of swollen, denies redness, discoloration, nausea, vomit, diarrhea, constipation Comb Fixer Required: No Accompanied by: Self / Same As Patient Allergies ondansetron [From ZOFRAN ( HYDROCHLORIDE)] Allergy (Unknown, Verified 11/25/22 13:29) SWELLING Medication List - Last Reconciled 11/25/22 by Johnson Lemus MD [id number] 75-125-1.25 mg caps PO levothyroxine 50 mcg PO DAILY minocycline 50 mg PO BID norethindrone (contraceptive) 0.35 mg PO DAILY HPI HPI Comments History of Present Illness Details 32-year-old female patient presenting for evaluation of a painful submental lymph node. Patient reports feeling tired and weak for several weeks. She also reports diffuse joint pain and a new onset of pain in the tailbone. She has a known history of Lyme disease with systemic symptoms. She recently developed neck pain for approximately 3 days and while feeling under her jaw noted a painful lump. She was subsequently evaluated in the emergency department yesterday at which time an ultrasound of the neck was obtained. This revealed a normal appearing submental lymph node corresponding to the palpable lump. Patient denies fever, chills, nausea, vomiting, shortness of breath or cough. She has Mayi's disease and apparently is not been taking her medications for the last several days. She continues to note pain when palpating the lymph node. [facility] Medical History Cervical cancer screening Counseling for control, oral contraceptives Mayi's disease Ovarian cyst Screen for sexually transmitted diseases Upper respiratory tract infection Well woman exam with routine gynecological exam Surgical History History of colonoscopy History of endoscopy History of wisdom tooth extraction Social History Alcohol intake: current Alcohol intake frequency: does not drink Female Reproductive History Menstrual Age of Menarche: 11 Review of Systems Const All systems reviewed & are unremarkable except as noted in HPI and below Denies chills, Denies fever(s), Denies headache(s), Denies poor appetite and Denies weakness ENT Reports as per HPI, Denies headache(s) and Reports neck pain Card Denies chest pain, Denies irregular heart rhythm, Denies palpitations and Denies dyspnea Resp Denies cough, Denies excessive phlegm production and Denies dyspnea GI Denies abdominal pain, Denies bloating, Denies change in bowel habits, Denies constipation, Denies heartburn, Denies diarrhea, Denies nausea and Denies vomiting Denies urinary frequency Musc Denies back pain, Reports arthralgias, Denies muscle weakness, Reports neck pain and Denies numbness Skin/Breast Denies changing lesions and Denies unusual bruising Neuro Denies headache(s), Denies numbness, Denies paresthesias and Denies weakness Psych Denies anxiety and Denies depression Endo Denies palpitations Jace/Lymph Denies lymphadenopathy Physical Exam Vital Signs: Last Vital Signs Pulse 77 11/25/22 13:32 BP 108/65 11/25/22 13:32 BMI result Body Mass Index 21.8 Const General: cooperative and no acute distress Nutritional Appearance: well nourished Orientation/consciousness: patient oriented x3 Limitations: no limitations HEENT Head: Yes normocephalic and Yes atraumatic Ears: hearing grossly normal bilaterally Teeth and gingiva: dentition normal and other (Patient with braces on both the upper and lower teeth) Neck Neck images: 1. Small, less than 1 cm tender nodule in the submental area suggestive of a reactive lymph node. No overlying skin changes are appreciated. No other cervical lymphadenopathy is appreciated. No enlarged salivary glands. Resp Effort & Inspection: normal respiratory effort, no audible wheezes, no cough and no respiratory distress Cardio Jugular venous distension: no JVD GI Inspection: Yes normal to inspection Skin Other: Warm, dry, no rash Neuro General: patient oriented x3 Extrem General: Yes no clubbing, cyanosis or edema Assessment & Plan Assessment & Plan (1) Swelling of lymph node: Code(s): R59.9 - Enlarged lymph nodes, unspecified Plan 32-year-old female patient presenting with a probable reactive lymph node in the submental area. This may be related to a viral illness, irritation from her new braces, or residual affects of the Lyme disease. I recommended observation with follow-up in 1 month to confirm resolution of her symptoms. She is welcome to call sooner for any new concerns or worsening symptoms. Coding Level of Care Code New Pt Level 4 (77487) Diagnoses Swelling of lymph node R59.9
[2022-11-25 13:32] VITALS: BP 108/65; PULSE 77; BMI 21.8
== END 2022-11-25 13:44 | disposition home or self-care (01) ==
PROVIDERS: PCP Internal Medicine; Visit Provider Surgery
DX: R59.0 Localized enlarged lymph nodes (principal)
CPT/HCPCS: 99203